=== PATIENT | male | born 1930 | race African-American/Black ===

== ENCOUNTER 2021-05-27 14:36 | Inpatient (IN) | payer MEDICARE, OTHER ==
[~2021-05-27] VITALS: Ht 182.9 cm; Wt 83.9 kg
[2021-05-27 15:43] LABS: BASOPHILS % 0.3 % (0.0-2.0); CHLORIDE 107 mEq/L (98-107); EOSINOPHILS % 0.3 % (0.0-5.0); HEMATOCRIT. 35.9 % (42.0-52.0); HEMOGLOBIN. 11.9 g/dL (14.0-18.0); LYMPHOCYTES % 10.2 % (20.0-50.0); MEAN CORPUSCULAR HEMOGLOBIN 29.2 pg (28.0-32.0); MEAN CORPUSCULAR VOLUME 88.1 fL (80.0-94.0); MEAN PLATELET VOLUME 8.5 fl (7.4-10.4); MONOCYTES % 14.9 % (2.0-8.0); NEUTROPHILS % 74.3 % (40.0-76.0); PLATELET 212 x1000/uL (130-400); RED BLOOD CELL COUNT 4.08 mill/uL (4.7-6.1); RED CELL DISTRIBUTION WIDTH 14.8 % (11.6-14.6)
[2021-05-27] MEDS ORDERED: FUROSEMIDE 20MG/2ML VIAL IVP SCH (16:45)
[2021-05-27] MEDS ORDERED: ASPIRIN 81MG TABLET PO ONE (16:45)
[2021-05-27] MEDS ORDERED: NA PHOS,M-B/NA PHOS,DI-BA ENEMA 118ML PR PRN (18:15)
[2021-05-27] MEDS ORDERED: NITROGLYCERIN 0.4MG TABLET SL SL PRN (18:15)
[2021-05-27] MEDS ORDERED: MAGNESIUM/ALUMINUM HYDROXIDE/SIMETHICONE 30ML UDC PO PRN (18:15)
[2021-05-27] MEDS ORDERED: ACETAMINOPHEN 325MG TABLET PO PRN ×2 (18:15)
[2021-05-27] MEDS ORDERED: GUAIFENESIN 200MG/10ML SUGAR FREE UDC PO PRN (18:15)
[2021-05-27] MEDS ORDERED: CLONIDINE 0.1MG TABLET PO PRN (18:15)
[2021-05-27] MEDS ORDERED: DOCUSATE SODIUM 100MG CAPSULE PO PRN (18:15)
[2021-05-27] MEDS ORDERED: ONDANSETRON HCL 4MG/2ML INJ IV PRN (18:15)
[2021-05-27] MEDS ORDERED: IPRATROPIUM/ALBUTEROL 0.5-3(2.5)MG/3ML NEB NEB PRN (18:15)
[2021-05-27] MEDS ORDERED: NALOXONE HCL 0.4MG/ML VIAL IV PRN (18:30)
[2021-05-27 19:51] LABS: FOLIC ACID (FOLATE) SERUM > 20.00 ng/mL (>5.38)
[2021-05-27 20:01] LABS: VITAMIN B12 SERUM 231 pg/mL (211-911)
[2021-05-27] MEDS ORDERED: ZOLPIDEM TARTRATE 5MG TABLET PO PRN (21:00)
[2021-05-27 21:40] VITALS: BP 101/40
[2021-05-27] MEDS: ENOXAPARIN 40MG/0.4ML SYR SUBCUT SCH (22:38)
[2021-05-27] MEDS: FAMOTIDINE 20MG TABLET PO SCH (22:38)
[2021-05-27] MEDS: ASCORBIC ACID 500 MG TABLET PO SCH (22:38)
[2021-05-27] MEDS: SPIRONOLACTONE 25MG TABLET PO SCH (22:39)
[2021-05-27 22:42] VITALS: BP 101/40
[2021-05-27 23:42] LABS: CREATINE KINASE MB FRACTION 1.1 ng/mL (0.5-3.6)
[2021-05-27] MEDS ORDERED: PNEUMOCOCCAL 23-VAL P-SAC VAC 0.5 ML IM ONE (23:45)
[2021-05-28] VITALS: BP 106/45
[2021-05-28] MEDS: FUROSEMIDE 40MG/4ML VIAL IVP SCH ×3 (01:28→21:10)
[2021-05-28 04:00] VITALS: BP 104/47
[2021-05-28] MEDS: TRAMADOL 50MG TABLET PO PRN (06:21)
[2021-05-28 07:57] LABS: BASOPHILS % 0.3 % (0.0-2.0); EOSINOPHILS % 1.2 % (0.0-5.0); HEMATOCRIT. 32.3 % (42.0-52.0); HEMOGLOBIN. 10.9 g/dL (14.0-18.0); LYMPHOCYTES % 12.9 % (20.0-50.0); MEAN CORPUSCULAR HEMOGLOBIN 29.5 pg (28.0-32.0); MEAN PLATELET VOLUME 8.3 fl (7.4-10.4); MONOCYTES % 13.3 % (2.0-8.0); NEUTROPHILS % 72.3 % (40.0-76.0); PLATELET 194 x1000/uL (130-400); RED BLOOD CELL COUNT 3.71 mill/uL (4.7-6.1); RED CELL DISTRIBUTION WIDTH 14.5 % (11.6-14.6)
[2021-05-28 08:00] VITALS: BP 94/56
[2021-05-28 08:01] LABS: CHLORIDE 109 mEq/L (98-107)
[2021-05-28 08:08] LABS: PHOSPHORUS 3.4 mg/dL (2.5-4.9)
[2021-05-28 08:11] LABS: CREATINE KINASE 173 IU/L (39-308)
[2021-05-28 08:15] LABS: CREATINE KINASE MB FRACTION 1.5 ng/mL (0.5-3.6)
[2021-05-28] MEDS: ZINC SULFATE 220 MG ( 50 ) CAPSULE PO SCH (09:42)
[2021-05-28] MEDS: ASPIRIN 325MG EC TABLET PO SCH (09:42)
[2021-05-28] MEDS: CHOLECALCIFEROL (D3) 1000 UNIT TABLET PO SCH (09:42)
[2021-05-28] MEDS: SPIRONOLACTONE 25MG TABLET PO SCH ×2 (09:42→21:17)
[2021-05-28] MEDS: ASCORBIC ACID 500 MG TABLET PO SCH ×2 (09:42→21:11)
[2021-05-28 12:00] VITALS: BP 99/46
[2021-05-28 16:00] VITALS: BP 116/45
[2021-05-28 20:00] VITALS: BP 117/44
[2021-05-28] MEDS: FAMOTIDINE 20MG TABLET PO SCH (21:11)
[2021-05-28] MEDS: ENOXAPARIN 40MG/0.4ML SYR SUBCUT SCH (21:19)
[2021-05-29] VITALS: BP 101/34
[2021-05-29 04:00] VITALS: BP 100/38
[2021-05-29 08:00] VITALS: BP 100/41
[2021-05-29 08:35] LABS: CHLORIDE 106 mEq/L (98-107)
[2021-05-29 08:41] LABS: PHOSPHORUS 4.7 mg/dL (2.5-4.9)
[2021-05-29] MEDS: ASPIRIN 325MG EC TABLET PO SCH (08:57)
[2021-05-29] MEDS: CHOLECALCIFEROL (D3) 1000 UNIT TABLET PO SCH (08:57)
[2021-05-29] MEDS: ZINC SULFATE 220 MG ( 50 ) CAPSULE PO SCH (08:57)
[2021-05-29] MEDS: ASCORBIC ACID 500 MG TABLET PO SCH ×2 (08:57→21:23)
[2021-05-29] MEDS: FUROSEMIDE 40MG/4ML VIAL IVP SCH ×2 (09:00→18:00)
[2021-05-29] MEDS: SPIRONOLACTONE 25MG TABLET PO SCH ×2 (09:00→21:00)
[2021-05-29] MEDS: TRAMADOL 50MG TABLET PO PRN (11:31)
[2021-05-29 12:00] VITALS: BP 114/46
[2021-05-29 16:00] VITALS: BP 96/42
[2021-05-29] MEDS ORDERED: APIXABAN 5 MG TABLET PO SCH (17:00)
[2021-05-29] MEDS: APIXABAN 2.5 MG TABLET PO SCH (18:12)
[2021-05-29 20:00] VITALS: BP 91/45
[2021-05-29] MEDS: FAMOTIDINE 20MG TABLET PO SCH (21:23)
[2021-05-30] VITALS: BP 99/45
[2021-05-30] MEDS: TRAMADOL 50MG TABLET PO PRN ×2 (01:45→08:41)
[2021-05-30 04:00] VITALS: BP 95/42
[2021-05-30] MEDS: FUROSEMIDE 40MG/4ML VIAL IVP SCH ×2 (06:13→17:13)
[2021-05-30 08:15] VITALS: BP 111/45
[2021-05-30] MEDS: ASCORBIC ACID 500 MG TABLET PO SCH ×2 (08:41→21:13)
[2021-05-30] MEDS: ASPIRIN 81MG EC TABLET PO SCH (08:41)
[2021-05-30] MEDS: ZINC SULFATE 220 MG ( 50 ) CAPSULE PO SCH (08:41)
[2021-05-30] MEDS: SPIRONOLACTONE 25MG TABLET PO SCH ×2 (08:41→21:13)
[2021-05-30] MEDS: CHOLECALCIFEROL (D3) 1000 UNIT TABLET PO SCH (08:42)
[2021-05-30] MEDS: APIXABAN 2.5 MG TABLET PO SCH ×2 (08:44→17:13)
[2021-05-30 12:00] VITALS: BP 96/49
[2021-05-30 16:30] VITALS: BP 101/45
[2021-05-30 20:00] VITALS: BP 102/44
[2021-05-30] MEDS: FAMOTIDINE 20MG TABLET PO SCH (21:12)
[2021-05-31 00:36] VITALS: BP 98/44
[2021-05-31] MEDS: FUROSEMIDE 40MG/4ML VIAL IVP SCH (05:59)
[2021-05-31 08:00] VITALS: BP 103/38
[2021-05-31] MEDS: CHOLECALCIFEROL (D3) 1000 UNIT TABLET PO SCH (09:43)
[2021-05-31] MEDS: ASPIRIN 81MG EC TABLET PO SCH (09:43)
[2021-05-31] MEDS: ASCORBIC ACID 500 MG TABLET PO SCH ×2 (09:43→21:36)
[2021-05-31] MEDS: ZINC SULFATE 220 MG ( 50 ) CAPSULE PO SCH (09:43)
[2021-05-31] MEDS: APIXABAN 2.5 MG TABLET PO SCH (09:44)
[2021-05-31] MEDS: SPIRONOLACTONE 25MG TABLET PO SCH ×2 (09:44→21:36)
[2021-05-31 12:00] VITALS: BP 104/43
[2021-05-31 16:00] VITALS: BP 114/70
[2021-05-31] MEDS: APIXABAN 5 MG TABLET PO SCH (17:35)
[2021-05-31] MEDS: FUROSEMIDE 40MG TABLET PO SCH (17:35)
[2021-05-31] MEDS ORDERED: CYAN-50 PO (18:22)
[2021-05-31] MEDS ORDERED: CHOL100022 PO (18:29)
[2021-05-31] MEDS ORDERED: THIA100T88 PO (18:34)
[2021-05-31] MEDS ORDERED: FOLI-43 PO (18:34)
[2021-05-31] MEDS ORDERED: FURO-151 MT (18:37)
[2021-05-31] MEDS ORDERED: MULT-1083 MT (18:38)
[2021-05-31] MEDS ORDERED: LISI-186 MT (18:38)
[2021-05-31] MEDS ORDERED: METO-385 MT (18:39)
[2021-05-31] MEDS ORDERED: APIX2.5T MT (19:10)
[2021-05-31 20:00] VITALS: BP 108/42
[2021-05-31] MEDS: FAMOTIDINE 20MG TABLET PO SCH (22:08)
[2021-06-01] VITALS: BP 102/47
[2021-06-01 04:00] VITALS: BP 103/44
[2021-06-01] MEDS: FUROSEMIDE 40MG TABLET PO SCH (05:59)
[2021-06-01 07:06] LABS: BASOPHILS % 0.2 % (0.0-2.0); EOSINOPHILS % 1.5 % (0.0-5.0); HEMATOCRIT. 35.2 % (42.0-52.0); HEMOGLOBIN. 11.7 g/dL (14.0-18.0); LYMPHOCYTES % 12.6 % (20.0-50.0); MEAN CORPUSCULAR HEMOGLOBIN 29.1 pg (28.0-32.0); MEAN CORPUSCULAR VOLUME 87.7 fL (80.0-94.0); MEAN PLATELET VOLUME 8.9 fl (7.4-10.4); MONOCYTES % 12.4 % (2.0-8.0); NEUTROPHILS % 73.3 % (40.0-76.0); PLATELET 312 x1000/uL (130-400); RED BLOOD CELL COUNT 4.01 mill/uL (4.7-6.1); RED CELL DISTRIBUTION WIDTH 14.4 % (11.6-14.6)
[2021-06-01 07:26] LABS: CHLORIDE 103 mEq/L (98-107)
[2021-06-01 08:00] VITALS: BP 110/42
[2021-06-01 12:00] VITALS: BP 100/42
[2021-06-01] MEDS: APIXABAN 5 MG TABLET PO SCH (12:14)
[2021-06-01] MEDS: ASPIRIN 81MG EC TABLET PO SCH (12:14)
[2021-06-01] MEDS: SPIRONOLACTONE 25MG TABLET PO SCH (12:14)
[2021-06-01] MEDS: CHOLECALCIFEROL (D3) 1000 UNIT TABLET PO SCH (12:15)
[2021-06-01] MEDS: ZINC SULFATE 220 MG ( 50 ) CAPSULE PO SCH (12:15)
[2021-06-01] MEDS: ASCORBIC ACID 500 MG TABLET PO SCH (12:15)
[2021-06-01 14:29] VITALS: BP 100/42
== END 2021-06-01 15:00 | disposition home or self-care (01) | DRG 291 ==
LOC: ER 14:36 → 7EST 17:35 → SUPCPDRO 18:08 → ENRESERV 19:57
PROVIDERS: ADMIT Internal Medicine; ATTEND Internal Medicine
DX: I11.0 Hypertensive heart disease with heart failure (principal); N17.0 Acute kidney failure with tubular necrosis; E44.1 Mild protein-calorie malnutrition; I48.11 Longstanding persistent atrial fibrillation; I50.43 Acute on chronic combined systolic (congestive) and diastolic (congestive) heart failure; I44.7 Left bundle-branch block, unspecified; D63.8 Anemia in other chronic diseases classified elsewhere; I35.0 Nonrheumatic aortic (valve) stenosis; Z95.0 Presence of cardiac pacemaker; Z95.2 Presence of prosthetic heart valve; Z79.01 Long term (current) use of anticoagulants; Z68.25 Body mass index [BMI] 25.0-25.9, adult
CPT/HCPCS: 36415; 71045; 80048; 80053; 80061; 82550; 82553; 82607; 82746; 83036; 83540; 83550; 83735; 83880; 84100; 84134; 84145; 84484; 85025; 90732; 93005; 93306; 93970; 97161; 97165; 99291; J1650; J1940; A4315